=== PATIENT | male | born 1945 | race Caucasian/White ===

== ENCOUNTER → 2016-09-02 | Day surgery (SDC) | payer OTHER, MEDICARE ==
[2016-08-14 15:05] VITALS: Ht 172.7 cm; Wt 90.0 kg
[~2016-09-02] VITALS: Ht 172.7 cm; Wt 90.0 kg
[~2016-09-02] MED LIST: ASPI1TAB83 PO; CHOL100040 PO; DOXA4TAB2 PO; DUTA0.5C PO; GLUC1TAB33 PO; HYZ/10015 PO; KRIL1000 PO; METF-382 PO; MULT-506 PO; PROPOFOL IV EMULSION 10 MG/ML 20 ML VIAL IV ONE; ROSU5TAB PO; SODIUM CHLORIDE 0.9% 500ML 500 ML IV ONE
--- NOTE | 2016-09-02 08:36 | Endo History and Physical ---
History & Physical Date of Service: Sep 02, 2016. Chief Complaint: history of polyps Referring Physician: Dr. Dorian Melvin History of Present Illness 71 yo CF who presents for colonoscopy secondary to history of colon polyps. Past Surgical History Hx Cardiac Surgery: No Hx Internal Defibrillator: No Hx Pacemaker: No Hx Abdominal Surgery: No Hx of Implantable Prosthesis: No Hx Post-Op Nausea and Vomiting: No Hx Cancer Surgery: Yes (RT EAR MOHS) Hx Thoracic Surgery: No Hx Orthopedic: No Hx Urinary Tract Surgery: Yes (VASECTOMY) Family History None Social History Smoking Status: Never Smoker Hx Substance Use: No Hx Alcohol Use: Yes (OCCASSIONALLY) Allergies Coded Allergies: No Known Allergies (Verified , 09/02/16) Current Medications Reported Home Medications Medications Dose Route/Sig Max Daily Dose Days Date Category Krill Oil 1 Cap Cap 1 Cap PO DAILY 08/14/16 Reported Glucosamine Hcl (Glucosamine Hydrochloride) 1,500 Mg Tab 1 Tab PO DAILY 08/14/16 Reported Avodart (Dutasteride) 0.5 Mg Cap 0.5 Mg PO DAILY 08/14/16 Reported Glucophage Ext Rel (Metformin HCl) 500 Mg Tab 1,000 Mg PO BID 01/26/13 Reported Crestor (Rosuvastatin Calcium) 5 Mg Tab 10 Mg PO DAILY 01/26/13 Reported Cardura (Doxazosin Mesylate) 4 Mg Tab 4 Mg PO DAILY 01/26/13 Reported Aspirin 81 Mg Tab 81 Mg PO DAILY 01/26/13 Reported Vitamin D-1000 (Cholecalciferol) 1,000 Unit Tab 1,000 Int-Unit PO DAILY 01/26/13 Reported Multivitamin (Multivitamins) Tab 1 Tab PO DAILY 01/26/13 Reported Hyzaar 25MG/100MG (HCTZ/Losartan Potassium) Tab 1 Tab PO DAILY 01/26/13 Reported Vital Signs Weight (Kilograms): 90 Height (Feet): 5 Height (Inches): 8 Date Time Temp Pulse Resp B/P Pulse Ox O2 Delivery O2 Flow Rate FiO2 09/02/16 08:05 36.8 77 20 161/83 97 Room Air Physical Exam General Appearance: WD/WN, no apparent distress Respiratory/Chest: Auscultation: breath sounds normal Cardiovascular: Heart Auscultation: RRR Abdomen: Bowel Sounds: normal Inspection & Palpation: soft, non-distended, no tenderness, guarding & rebound Assessment and Plan Assessment: 71 yo CF who presents for colonoscopy secondary to history of colon polyps. Plan: Proceed with colonoscopy.
--- NOTE | 2016-09-02 08:56 | Discharge Instructions ---
Endoscopy Patient Instructions Date / Procedure(s) Performed Sep 02, 2016. Colonoscopy Allergy Information Coded Allergies: No Known Allergies (Verified , 09/02/16) Discharge Date / Findings Sep 02, 2016. Diverticulosis Internal hemorrhoids Medication Instructions Stopped Medication(s): last dose Metformin Wednesday,Baby ASA yesterday Provider Instructions Activity Restrictions - No exercising or heavy lifting for 24 hours. - Do not drink alcohol the day of the procedure. - Do not drive a car or operate machinery until the day after the procedure. - Do not make any important decisions or sign important papers in 24 hours after the procedure. Following Day: - Return to full activity which may include returning to work/school. Diet Start your diet with liquids and light foods (jello, soup, juice, toast). Then eat your usual diet if not nauseated. Treatment For Common After Affects For mild abdominal pain, bloating, or excessive gas: - Rest - Eat lightly - Lie on right side Follow-Up Information Follow-up with Dr. Dorian Melvin as scheduled Anesthesia Information What You Should Know You have had a procedure that required some medicine to reduce anxiety and discomfort. This treatment is called moderate sedation. After receiving the treatment, you may be sleepy, but you will be able to breathe on your own. The effects of the treatment may last for several hours. Follow these instructions along with Activity/Diet recommendations noted above: * Do NOT do anything where dizziness or clumsiness would be dangerous. * Rest quietly at home today, then you can be up and about tomorrow. * Have a responsible person stay with you the rest of today. * You may have had an I.V. today. If so, you may take the dressing off later today. Recommendations Call your doctor if: * Trouble breathing * Continuous vomiting for more than 24 hours * Temperature above 101 degrees * Severe abdominal pain or bloating * Pain not relieved by pain medicine ordered * There is increased drainage or redness from any incision * A large amount of rectal bleeding greater than 2-3 tablespoons. (If you had a polyp/s removed or have hemorrhoids, a small amount of blood - from the rectum is to be expected.) * You have any unanswered questions or concerns. IN THE EVENT OF A SERIOUS EMERGENCY, GO TO THE NEAREST EMERGENCY ROOM Your discharge instructions were prepared by provider Roc Kelly. Patient Instructions Signature Page Chavo Waters Patient (or Guardian) Signature/Date: I have read and understand the instructions given to me by my caregivers. Caregiver/RN/Doctor Signature/Date: The above-named patient and/or guardian has received patient instructions on this date. + Original Patient Signature Page (only) stays with chart. Please make copy for patient.
--- NOTE | 2016-09-02 09:01 | GI REPORT ---
Procedure Date: 09/02/2016 8:36 AM Procedure: Colonoscopy Indications: High risk colon cancer surveillance: Personal history of colonic polyps Medicines: Monitored Anesthesia Care Complications: No immediate complications. Estimated Blood Loss: Estimated blood loss: none. Procedure: Pre-Anesthesia Assessment: - Prior to the procedure, a History and Physical was performed, and patient medications and allergies were reviewed. The patient's tolerance of previous anesthesia was also reviewed. The risks and benefits of the procedure and the sedation options and risks were discussed with the patient. All questions were answered, and informed consent was obtained. Prior Anticoagulants: The patient has taken aspirin, last dose was 1 day prior to procedure. ASA Grade Assessment: III - A patient with severe systemic disease. After reviewing the risks and benefits, the patient was deemed in satisfactory condition to undergo the procedure. After I obtained informed consent, the scope was passed under direct vision. Throughout the procedure, the patient's blood pressure, pulse, and oxygen saturations were monitored continuously. The scope was introduced through the anus and advanced to the terminal ileum. The colonoscopy was performed without difficulty. The patient tolerated the procedure well. The quality of the bowel preparation was good. The terminal ileum, ileocecal valve, appendiceal orifice, and rectum were photographed. Findings: Multiple small-mouthed diverticula were found in the sigmoid colon. Non-bleeding internal hemorrhoids were found during retroflexion. The hemorrhoids were small. Impression: - Diverticulosis in the sigmoid colon. - Non-bleeding internal hemorrhoids. - No specimens collected. Recommendation: - Resume previous diet. - Continue present medications. - Repeat colonoscopy in 5 years for surveillance. - Return to primary care physician as previously scheduled. Roc Kelly DO 09/02/2016 9:00:00 AM This report has been signed electronically. Note Initiated On: 09/02/2016 8:36 AM
[2016-09-02 09:35] VITALS: BP 143/69; PULSE 64; O2SAT 97
--- NOTE | 2016-09-02 10:59 | Anesthesiology Progress Note ---
Anesthesia Post Op Note Date & Time Sep 02, 2016 at 10:58 Vital Signs Pain Intensity: 0 Vital Signs Past 12 Hours Date Time Temp Pulse Resp B/P Pulse Ox O2 Delivery O2 Flow Rate FiO2 09/02/16 09:35 64 20 143/69 97 Room Air 09/02/16 09:14 62 20 148/73 96 Room Air 09/02/16 08:59 73 16 106/57 97 Room Air 09/02/16 08:05 36.8 77 20 161/83 97 Room Air Notes Mental Status: alert / awake / arousable Nausea / Vomiting: adequately controlled Pain: adequately controlled Airway Patency, RR, SpO2: stable & adequate BP & HR: stable & adequate Hydration State: stable & adequate Anesthetic Complications: no major complications apparent
== END | disposition home or self-care (01) ==
LOC: C.GI 07:43
PROVIDERS: ATTEND Internal Medicine
DX: Z12.11 Encounter for screening for malignant neoplasm of colon (principal); Z86.010 Personal history of colon polyps; K57.30 Diverticulosis of large intestine without perforation or abscess without bleeding; K64.8 Other hemorrhoids; Z98.890 Other specified postprocedural states

== ENCOUNTER → 2017-01-04 | Outpatient (CLI) | payer OTHER, MEDICARE ==
[~2017-01-04] MED LIST changes: -PROPOFOL IV EMULSION 10 MG/ML 20 ML VIAL IV ONE; -SODIUM CHLORIDE 0.9% 500ML 500 ML IV ONE
[2017-01-04 12:35] LABS: ESTIMATED AVERAGE GLUCOSE 128 mg/dl; HA1C FLAG Normal (Normal)
[2017-01-04 12:52] LABS: URINE APPEARANCE CLEAR (CLEAR); URINE BILIRUBIN NEG (NEG); URINE COLOR YELLOW; URINE NITRITE NEG (NEG); URINE PH 5.5 (4.5-7.5); URINE SPECIFIC GRAVITY 1.023 (1.000-1.030); UROBILINOGEN NEG (NEG); ZZUR CULT IF INDIC CLEAN CATCH NO
[2017-01-04 12:54] LABS: MANUAL MICROSCOPIC REQUIRED? NO; REVIEW REQ? NO
[2017-01-04 13:48] LABS: RATIO 5.6 mcg/mg (0-30.0)
[2017-01-04 14:31] LABS: ALB/GLOB RATIO 1.1 (0.9-2); ALKALINE PHOSPHATASE 59 U/L (45-117); ALT/SGPT 36 U/L (12-78); AST/SGOT 18 U/L (15-37); BLOOD UREA NITROGEN 23 mg/dl (7-18); BUN/CREATININE RATIO 23.7 (10-20); CALCIUM 9.1 mg/dl (8.5-10.1); CARBON DIOXIDE 28 mmol/L (21-32); CHLORIDE 105 mmol/L (98-107); CHOLESTEROL 153 mg/dl (0-200); CHOLESTEROL/HDL RATIO 3.8; CREATININE 0.97 mg/dl (0.60-1.40); GLUCOSE 107 mg/dl (70-99); HDL CHOLESTEROL 40 mg/dl; LDL CHOLESTEROL CALCULATED 47 mg/dl; POTASSIUM 3.9 mmol/L (3.5-5.1); SODIUM 140 mmol/L (136-145); THYROID STIMULATING HORMONE 0.869 uIu/ml (0.300-4.500); TRIGLYCERIDES 331 mg/dl (0-150); VERY LOW DENSITY LIPOPROT CALC 66 mg/dl
== END | disposition home or self-care (01) ==
LOC: C.LABBFT 07:34
PROVIDERS: ATTEND Internal Medicine
DX: E11.9 Type 2 diabetes mellitus without complications (principal); Z11.59 Encounter for screening for other viral diseases; E78.5 Hyperlipidemia, unspecified

== ENCOUNTER → 2017-04-05 | Outpatient (CLI) | payer OTHER, MEDICARE ==
[2017-04-05 12:22] LABS: ALT/SGPT 38 U/L (12-78); AST/SGOT 24 U/L (15-37); BLOOD UREA NITROGEN 22 mg/dl (7-18); BUN/CREATININE RATIO 21.5 (10-20); CALCIUM 9.3 mg/dl (8.5-10.1); CARBON DIOXIDE 29 mmol/L (21-32); CHLORIDE 103 mmol/L (98-107); GLUCOSE 117 mg/dl (70-99); SODIUM 139 mmol/L (136-145)
[2017-04-05 12:23] LABS: ESTIMATED AVERAGE GLUCOSE 126 mg/dl; HA1C FLAG Normal (Normal)
[2017-04-05 12:25] LABS: ALKALINE PHOSPHATASE 59 U/L (45-117)
== END | disposition home or self-care (01) ==
LOC: C.LABBFT 07:39
PROVIDERS: ATTEND Internal Medicine
DX: E11.9 Type 2 diabetes mellitus without complications (principal)

== ENCOUNTER → 2017-06-07 | Outpatient (CLI) | payer OTHER, MEDICARE ==
--- NOTE | 2017-06-08 09:53 | MYOCARDIAL PERFUSION SCAN ---
NAME OF STUDY: One-day nuclear medicine technetium-99m Cardiolite myocardial perfusion scan. CLINICAL HISTORY: This stress test is being performed because of dizziness and chest discomfort. COMPARISON: None. TECHNIQUE: For the stress portion of the study, 33.0 mCi of Technetium 99 m Cardiolite IV was injected at 1:35 p.m. on 06/07/2017. 15 minutes following the injection, imaging of the heart was performed in multiple projection. For the rest portion of the study, 11.0 mCi of Technetium 99 m Cardiolite was injected IV at 11:30 a.m. One hour following the injection, imaging of the heart was performed in the same projections. EXERCISE TREADMILL TESTING: The patient exercised for 6 minutes on a standard Jeff protocol attaining 7 METS and a peak heart rate of 151 beats per minute (100% predicted maximum). The test was terminated due to fatigue. The patient did not experience chest discomfort. Initial blood pressure was 140/80 and this increased to 180/80 at peak exertion. Baseline EKG notes atrial sensing and ventricular pacing. Exercise ECG nondiagnostic due to the conduction abnormality. FINDINGS: The short axis, vertical long axis, and horizontal long axis images were reviewed in detail. There is a small defect noted in the inferior wall which is present at stress and rest. The gated and rotating images suggest that this represents diaphragmatic attenuation rather than a prior infarction. There is no evidence of stress induced myocardial ischemia. The left ventricle demonstrates normal systolic function with an ejection fraction of 69%. There are no wall motion abnormalities. CONCLUSIONS: 1. No scintigraphic evidence of a prior myocardial infarction or stress induced myocardial ischemia. 2. No exercise induced chest pain. 3. Nondiagnostic EKG. 4. Normal left ventricular systolic function with an ejection fraction of 69%. No wall motion abnormalities.
== END | disposition home or self-care (01) ==
LOC: C.NUCL 11:06
PROVIDERS: ATTEND Internal Medicine Cardiovascular Disease
DX: R42 Dizziness and giddiness (principal)

== ENCOUNTER → 2017-09-20 | Outpatient (CLI) | payer OTHER, MEDICARE | END | disposition home or self-care (01) | LOC: C.LABBFT 12:08 | PROVIDERS: ATTEND Urology | DX: N40.0 Benign prostatic hyperplasia without lower urinary tract symptoms (principal) ==

== ENCOUNTER → 2017-10-21 | Outpatient (CLI) | payer OTHER, MEDICARE ==
[2017-10-21 12:42] LABS: BASO % 0.6 %; BASO ABS # 0.04 K/uL (0-0.2); EOS % 1.2 %; EOS ABS # 0.08 K/uL (0-0.5); HEMATOCRIT 40.4 % (42-52); HEMOGLOBIN 13.7 g/dL (14.0-18.0); IG# 0.01 K/uL (0.00-0.02); LYMPH % 33.9 %; LYMPH ABS # 2.23 K/uL (1.2-3.4); MEAN CELL VOLUME 85.8 fL (80-100); MEAN CORPUSCULAR HEMOGLOBIN 29.1 pg (25-34); MEAN CORPUSCULAR HGB CONC 33.9 g/dl (32-36); MEAN PLATELET VOLUME 10.2 fL (7.4-10.4); MONO % 13.5 %; MONO ABS # 0.89 K/uL (0.11-0.59); NEUT % 50.6 %; NEUT ABS # 3.33 K/uL (1.4-6.5); PLATELET COUNT 198 K/uL (130-400); RED CELL DISTRIBUTION WIDTH CV 13.8 % (11.5-14.5); RED CELL DISTRIBUTION WIDTH SD 43.1 fL (36.4-46.3); WHITE BLOOD COUNT 6.58 K/uL (4.8-10.8)
[2017-10-21 13:19] LABS: HEMOGLOBIN A1C 6.1 % (4.5-5.6)
== END | disposition home or self-care (01) ==
LOC: C.LABBFT 07:30
PROVIDERS: ATTEND Internal Medicine
DX: D64.9 Anemia, unspecified (principal); E11.9 Type 2 diabetes mellitus without complications; E78.5 Hyperlipidemia, unspecified

== ENCOUNTER → 2017-11-02 | Outpatient (CLI) | payer OTHER, MEDICARE ==
--- NOTE | 2017-11-02 15:22 | DIAGNOSTIC IMAGING REPORT ---
CAROTID DOPPLER NECK ART HISTORY: Carotid stenosis. I65.29 Carotid artery stenosis, [id number] Nontoxic multi COMPARISON: 06/26/2014 TECHNIQUE: Real-time, grayscale, and color Doppler sonography of the carotid arteries was performed. Imaging reviewed in the transverse and longitudinal planes. All measurements were calculated based on NASCET criteria. FINDINGS: Antegrade flow is seen in the bilateral vertebral arteries. The brachial pressures are hemodynamically similar. Mild plaque formation bilaterally The peak systolic velocity within the right ICA is 82. The right systolic ratio is 0.9. The peak systolic velocity within the left ICA is 173. The left systolic ratio is 1.4. IMPRESSION: 1. 50-60% narrowing left internal carotid artery. 2. This is stable to slightly progressive compared to the prior exam. 3. No additional significant stenotic process. The above report was generated using voice recognition software. It may contain grammatical, syntax or spelling errors. Electronically signed by: Yosef Stapleton M.D. 11/02/2017 3:21 PM Dictated Date/Time: 11/02/2017 3:19 PM
--- NOTE | 2017-11-02 15:27 | DIAGNOSTIC IMAGING REPORT ---
SOFT TISS HEAD/NECK-THYROID HISTORY: Thyroid nodules E04.2 Nontoxic multinodular goiter COMPARISON: 12/27/2014 FINDINGS: Right lobe: Maximum dimension 5.0 cm. Improved nodularity compared to the prior study with a maximum dimension of 1.7 x 1.5 cm. Left lobe: Maximum dimension 6.0 cm. Diffuse heterogeneous somewhat nodular appearing internal architecture similar compared to the prior study. Discrete nodules are difficult to define with certainty. Isthmus: Diffuse heterogeneity unchanged IMPRESSION: Diffuse heterogeneity of both thyroid lobes with stable to slightly diminished underlying nodularity. The above report was generated using voice recognition software. It may contain grammatical, syntax or spelling errors. Electronically signed by: Yosef Stapleton M.D. 11/02/2017 3:25 PM Dictated Date/Time: 11/02/2017 3:22 PM
== END | disposition home or self-care (01) ==
LOC: C.ULTR 13:33
PROVIDERS: ATTEND Physician Assistant Medical
DX: E04.2 Nontoxic multinodular goiter (principal); I65.29 Occlusion and stenosis of unspecified carotid artery

== ENCOUNTER → 2017-11-24 | Outpatient (CLI) | payer OTHER, MEDICARE | END | disposition home or self-care (01) | LOC: C.PATHSPEC 18:05 | PROVIDERS: ATTEND Dermatology | DX: C43.59 Malignant melanoma of other part of trunk (principal) ==

== ENCOUNTER → 2017-12-08 | Outpatient (CLI) | payer OTHER, MEDICARE ==
--- NOTE | 2017-12-08 15:44 | DIAGNOSTIC IMAGING REPORT ---
CHEST 2 VIEWS ROUTINE HISTORY: Melanoma. COMPARISON: Chest 05/28/2016. FINDINGS: Best seen on the lateral view there is a possible 1.3 cm nodule overlying the thoracic spine. No focal lung consolidations. No evidence for pulmonary edema. The heart is normal in size. No pleural effusions. No pneumothorax. Left-sided dual-chamber pacemaker. IMPRESSION: Follow-up chest CT is recommended for further evaluation of the possible 1.3 cm nodule overlying the thoracic spine. These findings were called/faxed to the referring physician's office following dictation. Electronically signed by: James Garcia M.D. 12/08/2017 3:43 PM Dictated Date/Time: 12/08/2017 3:40 PM
== END | disposition home or self-care (01) ==
LOC: C.RAD 14:59
PROVIDERS: ATTEND Physician Assistant
DX: Z08 Encounter for follow-up examination after completed treatment for malignant neoplasm (principal); Z85.820 Personal history of malignant melanoma of skin; R93.8 Abnormal findings on diagnostic imaging of other specified body structures

== ENCOUNTER → 2017-12-08 | Outpatient (CLI) | payer OTHER, MEDICARE | END | disposition home or self-care (01) | LOC: C.PATHSPEC 17:08 | PROVIDERS: ATTEND Plastic Surgery | DX: C43.59 Malignant melanoma of other part of trunk (principal) ==

== ENCOUNTER → 2017-12-09 | Outpatient (CLI) | payer OTHER, MEDICARE ==
[2017-12-09 12:38] LABS: BASO % 0.3 %; BASO ABS # 0.03 K/uL (0-0.2); EOS % 0.4 %; EOS ABS # 0.04 K/uL (0-0.5); HEMATOCRIT 40.3 % (42-52); HEMOGLOBIN 13.4 g/dL (14.0-18.0); IG# 0.03 K/uL (0.00-0.02); LYMPH % 15.8 %; LYMPH ABS # 1.66 K/uL (1.2-3.4); MEAN CELL VOLUME 86.3 fL (80-100); MEAN CORPUSCULAR HEMOGLOBIN 28.7 pg (25-34); MEAN CORPUSCULAR HGB CONC 33.3 g/dl (32-36); MEAN PLATELET VOLUME 10.2 fL (7.4-10.4); MONO % 5.7 %; NEUT % 77.5 %; NEUT ABS # 8.15 K/uL (1.4-6.5); PLATELET COUNT 187 K/uL (130-400); RED CELL DISTRIBUTION WIDTH SD 43.8 fL (36.4-46.3); WHITE BLOOD COUNT 10.51 K/uL (4.8-10.8)
[2017-12-09 12:55] LABS: ALBUMIN 3.6 gm/dl (3.4-5.0); TOTAL PROTEIN 7.1 gm/dl (6.4-8.2)
== END | disposition home or self-care (01) ==
LOC: C.LABBFT 10:10
PROVIDERS: ATTEND Physician Assistant
DX: Z85.820 Personal history of malignant melanoma of skin (principal)

== ENCOUNTER → 2017-12-28 | Outpatient (CLI) | payer OTHER, MEDICARE ==
--- NOTE | 2017-12-28 15:13 | DIAGNOSTIC IMAGING REPORT ---
CT SCAN OF THE CHEST WITHOUT IV CONTRAST CLINICAL HISTORY: Melanoma. COMPARISON STUDY: Chest x-ray dated 12/08/2017. TECHNIQUE: CT scan of the thorax was performed from the thoracic inlet to the upper abdomen. Images are reviewed in the axial, sagittal, and coronal planes. IV contrast was not administered for this examination as per the referring clinician. A dose lowering technique was utilized adhering to the principles of ALARA. CT DOSE: 632.64 mGy.cm FINDINGS: Thyroid: Enlarged and heterogeneous. Low-attenuation nodules are suggested. A coarse calcification is seen in the left thyroid lobe. Thoracic aorta: The thoracic aorta is normal in caliber and demonstrates standard 3-vessel arch anatomy. Heart: A 2-lead cardiac pacemaker is present in the left chest wall. The heart is top normal size and there is trace fluid. There are scattered coronary artery calcifications.. Lungs and pleural spaces: There is trace pleural fluid left lung base. There is patchy consolidation identified in the right lower lobe. There is a 1.4 x 1.1 cm nodule in the left lower lobe seen on image 150. This likely corresponds to a mildly seen by x-ray. An additional 5 mm nodule seen in the right lower lobe in image #224, and a 3 mm right upper lobe nodule is seen on image #116. The trachea and central airways are clear. There are scattered calcified granulomas. Mediastinum: There is no mediastinal lymphadenopathy. Nadja: Not well assessed without IV contrast. Axillae: There is no axillary lymphadenopathy. Upper abdomen: The liver is enlarged and steatotic. A tiny hiatal hernia is identified. Diverticulosis is noted in the partially imaged left colon. Skeletal structures: The skeletal structures are osteopenic. A large hemangioma is noted in the body of T9. No lytic or blastic bony lesions are seen. IMPRESSION: 1. There is patchy consolidation in the right lower lobe, typical in appearance for pneumonia/aspiration pneumonitis. Clinical correlation will be required. Follow-up to resolution is recommended. 2. There is a trace left pleural effusion. 3. There is a pathologically indeterminant 1.4 x 1.1 cm nodule in the left lower lobe. This likely corresponds to the abnormality seen by chest x-ray on 12/08/2017. This could represent metastatic disease given the history of melanoma. A primary pulmonary neoplasm or pulmonary carcinoid could also have this appearance. Tissue sampling will be required for definitive characterization. Follow-up with a thoracic surgeon is recommended for further assessment. 4. Additional subcentimeter pulmonary nodules as above. These can be followed as per the Fleischner criteria. 5. There is no mediastinal adenopathy. 6. Hepatic steatosis. 7. Additional findings as above. Please refer to below summary of Fleischner criteria recommendations for follow-up of incidental CT nodules (Thuy Howe, Guidelines for management of small pulmonary nodules detected on CT scans: A statement from the Fleischner Society, Radiology 237: [phone].) SOLID NODULES Solitary nodule size: <6 mm * low risk patients: no follow-up needed * high risk patients: optional CT at 12 months Solitary nodule size: 6-8 mm * low risk patients: follow-up at 6-12 months, then consider further follow-up at 18-24 months * high risk patients: initial follow-up CT at 6-12 months and then at 18-24 months if no change Solitary nodule size: >8 mm * either low or high risk patients - consider follow-up CT at 3 months, and/or CT-PET, and/or biopsy Multiple nodules size: <6 mm * low risk patients: no routine follow-up * high risk patients: optional CT at 12 months Multiple nodules size: 6-8 mm * low risk patients: follow-up at 3-6 months, then consider further follow-up at 18-24 months * high risk patients: follow-up at 3-6 months, then at 18-24 months if no change Multiple nodules size: >8 mm * low risk patients: follow-up at 3-6 months, then consider further follow-up at 18-24 months * high risk patients: follow-up at 3-6 months, then at 18-24 months if no change Note: newly detected indeterminate nodule in persons 35 years of age or older. * low risk patients: minimal or absent history of smoking and/or other known risk factors * high risk patients: history of smoking or of other known risk factors (e.g. first degree relative with lung cancer, or exposure to asbestos, radon, uranium) * if a nodule up to 8 mm is partly solid or is ground glass further follow-up is required after 24 months to exclude possible slow growing adenocarcinoma (EVONNE) SUBSOLID NODULES Solitary pure ground-glass nodule * nodule size <6 mm - no CT follow-up required * nodule size >=6 mm - follow-up CT at 6-12 months, then every 2 years until 5 years Solitary part-solid nodule * nodule size <6 mm - no CT follow-up required * nodule size >=6 mm - follow-up CT at 3-6 months. If unchanged, and solid component remains <6 mm, then annual follow-up for 5 years Multiple subsolid nodules * nodule size <6 mm - follow-up CT at 3-6 months, consider further follow-up at 2 and 4 years if stable * nodule size >=6 mm - follow-up CT at 3-6 months, subsequent management based on the most suspicious nodule(s) Electronically signed by: Torey Jones M.D. 12/28/2017 3:12 PM Dictated Date/Time: 12/28/2017 3:03 PM
== END | disposition home or self-care (01) ==
LOC: C.CTS 14:39
PROVIDERS: ATTEND Dermatology
DX: C43.59 Malignant melanoma of other part of trunk (principal); R93.8 Abnormal findings on diagnostic imaging of other specified body structures; R91.1 Solitary pulmonary nodule; R91.8 Other nonspecific abnormal finding of lung field; K76.0 Fatty (change of) liver, not elsewhere classified

== ENCOUNTER → 2018-01-12 | Outpatient (CLI) | payer OTHER, MEDICARE ==
--- NOTE | 2018-01-12 13:18 | DIAGNOSTIC IMAGING REPORT ---
WHOLE-BODY PET/CT SCAN CLINICAL HISTORY: PULMONARY NODULE melanoma COMPARISON STUDY: Chest CT dated 12/28/2017 FINDINGS: The patient was injected with 11.5 mCi of F 18 labeled FDG. Following the standard induction phase, PET/CT scanning is performed from the skull base the upper thigh region. Activity within the head and neck is felt to be physiologic. The CT portion study reveals a multinodular thyroid goiter which is not significantly FDG avid Within the chest, there is no FDG avid adenopathy. There is a lobulated 13 mm left lower lobe pulmonary nodule which is not significantly FDG avid. Within the abdomen and pelvis, there is physiologic urinary tract and bowel activity. There is no pathologic adrenal activity. There is no pathologic hepatic activity. There is no pathologic garrison activity. There is extensive pandiverticulosis. Additional acquisitions of both lower extremities were obtained. There are a few nonspecific foci of mildly increased activity within the right soleus muscle, of uncertain significance. These at an SUV maximum of 3.7 there are no corresponding CT abnormalities. IMPRESSION: 1. The 13 mm left lower lobe pulmonary nodule is not FDG avid 2. No evidence of pathologic garrison activity 3. There are few nonspecific foci of mildly increased activity within the right soleus muscle of the calf. These foci are uncertain etiology and significance. These have an SUV maximum of 3.7. There is no corresponding CT abnormality. Electronically signed by: Parish Andre M.D. 01/12/2018 1:17 PM Dictated Date/Time: 01/12/2018 1:04 PM
== END | disposition home or self-care (01) ==
LOC: C.PET 08:56
PROVIDERS: ATTEND Surgery
DX: C43.59 Malignant melanoma of other part of trunk (principal); R91.1 Solitary pulmonary nodule

== ENCOUNTER → 2018-01-14 | Outpatient (CLI) | payer OTHER, MEDICARE ==
[~2018-01-14] MED LIST changes: +COEN75CA PO; +PRAV20TA PO; +TAMS0.4C38 PO
[2018-01-14 10:13] LABS: BLOOD UREA NITROGEN 23 mg/dl (7-18); CALCIUM 9.5 mg/dl (8.5-10.1); CARBON DIOXIDE 29 mmol/L (21-32); CREATININE 1.12 mg/dl (0.60-1.40); GLUCOSE 108 mg/dl (70-99); POTASSIUM 3.8 mmol/L (3.5-5.1); SODIUM 139 mmol/L (136-145)
== END | disposition home or self-care (01) ==
LOC: C.CPL 08:21
PROVIDERS: ATTEND Surgery
DX: Z01.812 Encounter for preprocedural laboratory examination (principal); Z01.810 Encounter for preprocedural cardiovascular examination; R91.1 Solitary pulmonary nodule

== ENCOUNTER 2018-01-18 07:55 | Inpatient (IN) | payer OTHER, MEDICARE ==
[2018-01-17 08:43] VITALS: BMI 31.0
[~2018-01-18] VITALS: Ht 172.7 cm; Wt 94.0 kg
[~2018-01-18 07:55] MED LIST changes: +LACTATED RINGER'S 1000ML 1,000 ML IV SCH; -ROSU5TAB PO
[2018-01-18 08:24] VITALS: BP 171/74; PULSE 81; TEMP 36.5; O2SAT 99; BMI 31.0
[2018-01-18 09:09] LABS: PTT PATIENT 27.8 SECONDS (21.0-31.0)
[2018-01-18] MEDS ORDERED: FENTANYL CITRATE INJ 50 MCG/1 ML 2 ML VIAL ONE ×4 (09:11→15:10)
[2018-01-18] MEDS ORDERED: MIDAZOLAM HCL 1 MG/ML 2ML VIAL ONE (09:11)
--- NOTE | 2018-01-18 09:31 | History & Physical Bridge Note ---
H&P Re-Evaluation Bridge Note: I have examined the patient, reviewed the History & Physical and in the interval since the performance of the History & Physical I have noted the following changes of clinical significance: No changes noted
[2018-01-18] MEDS ORDERED: CLINDAMYCIN PHOS 150 MG/ML 2 ML VIAL ONE (10:17)
[2018-01-18] MEDS ORDERED: SODIUM CHLORIDE 0.9% PF 50 ML VIAL ONE ×2 (10:18→10:29)
[2018-01-18] MEDS ORDERED: BUPIVACAINE LIPOSOME 1/3% 266 MG/20 ML VIAL ONE (10:18)
[2018-01-18] MEDS ORDERED: SODIUM CHLORIDE 0.9% INJ 10 ML VIAL ONE (10:18)
[2018-01-18] MEDS ORDERED: BUPIVACAINE 0.5 % 5 MG/1 ML PF 10ML VIAL ONE (10:19)
[2018-01-18] MEDS ORDERED: DEXAMETHASONE SOD INJ 4 MG/ML VIAL ONE (12:37)
[2018-01-18] MEDS ORDERED: GLYCOPYRROLATE INJ 0.2 MG/ML VIAL ONE (12:37)
[2018-01-18] MEDS ORDERED: LIDOCAINE HCL 2% 2 ML VIAL (20MG/ML) ONE (12:37)
[2018-01-18] MEDS ORDERED: CEFAZOLIN SOD 1 GM VIAL ONE (12:37)
[2018-01-18] MEDS ORDERED: ONDANSETRON INJ 2 MG/ML 2 ML VIAL ONE (12:37)
[2018-01-18] MEDS ORDERED: NEOSTIGMINE METHYLSULFATE 5 MG/5 ML SYR ONE (12:37)
[2018-01-18] MEDS ORDERED: PROPOFOL IV EMULSION 10 MG/ML 20 ML VIAL ONE ×2 (12:37→14:01)
[2018-01-18] MEDS ORDERED: ROCURONIUM BROMIDE 10 MG/ML 5 ML VIAL ONE (12:37)
[2018-01-18] MEDS ORDERED: HYDROmorphone INJ 0.5 MG/0.5 ML SYR IV PRN (14:00)
[2018-01-18] MEDS ORDERED: EpHEDrine SULFATE INJ 50 MG/ML AMP IV PRN (14:00)
[2018-01-18] MEDS ORDERED: ONDANSETRON INJ 2 MG/ML 2 ML VIAL IV PRN ×2 (14:00→15:15)
[2018-01-18] MEDS ORDERED: ATROPINE SULFATE 0.1 MG/ML 5ML SYR IV PRN (14:00)
[2018-01-18] MEDS ORDERED: LABETALOL HCL IV 5 MG/ML 20ML IV PRN (14:00)
[2018-01-18] MEDS ORDERED: FENTANYL CITRATE INJ 50 MCG/1 ML 2 ML VIAL IV PRN (14:00)
[2018-01-18] MEDS ORDERED: PHENYLEPHRINE 100MCG/ML 5ML SYR ONE (14:03)
[2018-01-18] MEDS ORDERED: TISSEEL FIBRIN SEALANT 10ML TOP ONE (14:30)
--- NOTE | 2018-01-18 14:50 | [facility] Post Operative Brief Note ---
Immediate Operative Summary Operative Date January 18, 2018. Pre-Operative Diagnosis Mass Left Lower Lobe Post-Operative Diagnosis Same as preop Procedure(s) Performed Left Video Assisted Thoracoscopy with Left Lower Lobectomy with Mediastinal Lymphadenectomy Robot Teresat Surgeon Dr. Liu Education And Training Coordinator Surgeon(s) Sudarshan Varghese PA-C Estimated Blood Loss 200 ml Findings Consistent with Post-Op Diagnosis Specimens Permanent A. L 8 Lymph node x 2 B. L 12 Lymph node x 4 C. L 11 Lymph node X 2 D. L 10 Lymph node X 4 E. Level 5 F. Level 6 G. L 2 Lymph node H. L 9 Lymph node Frozen 1. Left lower lobe for bronchial margins and diagnosis left room at 1444 Anesthesia Type General
[2018-01-18] MEDS ORDERED: METOCLOPRAMIDE HCL INJ 5 MG/ML 2 ML VIAL IV. STA (15:01)
[2018-01-18] MEDS ORDERED: GLUCOSE 40% GEL 15 GM TUBE PO PRN (15:15)
[2018-01-18] MEDS ORDERED: GLUCAGON FOR INJ 1 MG VIAL IM PRN (15:15)
[2018-01-18] MEDS ORDERED: SODIUM CHLORIDE 0.9% 1000ML 1,000 ML IV SCH (15:15)
[2018-01-18] MEDS ORDERED: GLUCOSE 10 TABS/TUBE PO PRN (15:15)
[2018-01-18] MEDS ORDERED: CARBOHYDRATES FOR HYPOGLYCEMIA PO PRN (15:15)
[2018-01-18] MEDS ORDERED: DEXTROSE 50% 50 ML SYR IV PRN (15:15)
[2018-01-18] MEDS ORDERED: MoRPHine SULFATE 4 MG/ML 1 ML CARP\\VIAL IV PRN (15:15)
[2018-01-18] MEDS ORDERED: OXYCODONE HCL IR 5 MG TAB (IMMEDIATE RELEASE) PO PRN (15:15)
[2018-01-18] MEDS: MEPERIDINE HCL 25 MG/ML CARP IV PRN ×2 (15:35→16:13)
--- NOTE | 2018-01-18 15:51 | DIAGNOSTIC IMAGING REPORT ---
CHEST ONE VIEW PORTABLE CLINICAL HISTORY: Lung resection. COMPARISON STUDY: Chest CT December 28, 2017. FINDINGS: A left sided chest tube is in place. There is a dual lead left subclavian pacemaker. Soft tissue gas within the left chest wall is expected. A small left pneumothorax is noted, predominantly located within the medial left hemithorax. There is no evidence for pulmonary edema. Cardiomegaly is noted. IMPRESSION: Small medial left pneumothorax. Left chest tube in place. Electronically signed by: Baljinder Blue M.D. 01/18/2018 3:49 PM Dictated Date/Time: 01/18/2018 3:47 PM
--- NOTE | 2018-01-18 16:10 | OPERATIVE REPORT ---
DATE OF OPERATION: 01/18/2018 PREOPERATIVE DIAGNOSIS: Pulmonary nodule, left lower lobe. POSTOPERATIVE DIAGNOSIS: Neoplasm, left lower lobe. PROCEDURE: 1. Robot-assisted thoracoscopic left lower lobectomy. 2. Mediastinal lymph node dissection. SURGEON: Sergio Liu MD. FISHING ACCESSORIES MAKER: Sudarshan Varghese. (Mr. Varghese was present for the entire case. He was at the patient's bedside while I was at the consult for the robotic portion. Mr. Varghese was present for the entire case and closed the skin incisions at the conclusion.) ANESTHESIA: General anesthesia with endotracheal intubation. 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 It was very superficial and only 0.3 mm. He also had a cough and underwent a chest x-ray and a CT scan and was found to have a nodule in his left lower lobe. He is very concerning, although he had no other evidence of disease anywhere else. After much discussion, we elected to proceed with a resection. I would have done a wedge resection; however, this was in the middle of his left lower lobe. He had good lung function. After a long discussion with the patient and his , who is a retired brilliandeer lopper, we elected to proceed with a lobectomy. On 01/18/2018, the patient was brought to the operating room and underwent uncomplicated robotic resection. Frozen section showed this to be a neoplasm, although we were unable to delineate any further specifics. The resection margins were negative. PROCEDURE: The patient brought to operating room and laid in supine position. General anesthesia was induced and endotracheal intubation was performed with a double lumen tube. Arterial line was placed. The patient was placed in right lateral decubitus position and left chest was prepped and draped in the usual sterile fashion. A 5 mm port was placed posteriorly in about the eighth interspace. An 8 mm port was placed about 9 cm more medial and then a camera port which was 12 mm was placed about 10 cm anterior to this and finally an 8 mm port was placed anteriorly in the seventh interspace. An assistance port, which was 15 mm, was placed just above the costal margin anteriorly. Upon going in, we could see there really was very little in the way of adhesions except for between the lower lobe and the upper lobe. These appeared to be inflammatory adhesions. We dissected this out and freed up the anterior medial aspect of the lower lobe from the diaphragm. I then was able to push the lung anteriorly and opened up the posterior pleura, took down the inferior pulmonary ligament, biopsied level 8 and level 9 lymph nodes reaching up to the vein and cleaned this off quite nicely anteriorly and posteriorly. I then kept going up posteriorly and got to the artery and dissected this out until we freed up a nice plane here. I went further up and I biopsied level 5 and level 6 lymph nodes. We also were able to biopsy level 10 nodes, although I really could not get to level 7. His anatomy just made it difficult. The lung was then retracted medially and I freed up the medial aspect and then did biopsy of the level 10 node. I then the adhesions between the 2 lobes which were particularly dense anteriorly. I was unable to find the artery medially and did a fine dissection posteriorly until I came to my original dissection area and then fired an Endo-DEREK stapler x1 to complete the posterior fissure. This allowed us to visualize the A6 or superior segmental artery to the lower lobe posteriorly and we fired Endo-DEREK stapler across this. I was unable to free up the remaining left lower lobe artery and fired a stapler just distal to the takeoff of the lingual artery. This freed up things quite nicely. I then went down in front of the bronchus through the fissure and cut down into where I was able to fire an Endo-DEREK stapler to complete the anterior fissure about 3 times. I was then able to free up the vein very nicely and fired an Endo-DEREK stapler across this. I then pulled down the lung and fired a stapler across the lower lobe bronchus distal to the lingual bronchus. We made sure we did not compromise this. I also biopsied what appeared to be a level 2 node as I went dissecting up anteriorly and medially. I could not get to the level 7. It should be noted that prior to starting the dissection, as soon as we entered the chest, I mixed 266 mg of Exparel with 30 mL of 0.5% bupivacaine and 150 mL of normal saline. I injected each of the port sites from the skin all the way down to the pleura. I then used the rest of this to perform an intercostal block from the 2nd-11th rib intrathoracically. Going back into the chest, we then placed the left lower lobe in an Endobag. We had to enlarge the assistance port just a bit to get this out. A 24-Sinhala chest tube was placed through the anterior thoracoscopy port and directed towards the apex. Tisseel was then sprayed on the bronchus and the arteries and veins as well as the staple lines anteriorly and posteriorly. Really the lung expanded nicely and I really did not see an air leak. A 0-Vicryl was used to close the assistance port and a camera port. A 4-0 Monocryl was used in running subcuticular fashion to close all the skin incisions. The chest tube was held in place with heavy silk suture. He awakened without difficulty from anesthesia. I attest to the content of the Intraoperative Record and any orders documented therein. Any exception s are noted below.
[2018-01-18 16:51] VITALS: BP 148/89; PULSE 86; TEMP 36.4; O2SAT 99
--- NOTE | 2018-01-18 16:54 | Anesthesiology Progress Note ---
Anesthesia Post Op Note Date & Time January 18, 2018 at 16:42 Vital Signs Pain Intensity: 0 Vital Signs Past 12 Hours Date Time Temp Pulse Resp B/P (MAP) Pulse Ox O2 Delivery O2 Flow Rate FiO2 01/18/18 16:31 165/85 01/18/18 16:30 80 11 99 01/18/18 16:30 36.4 80 11 01/18/18 16:26 154/83 01/18/18 16:25 80 10 01/18/18 16:25 79 10 97 01/18/18 16:21 166/88 01/18/18 16:20 81 16 01/18/18 16:20 81 16 98 01/18/18 16:16 167/91 01/18/18 16:15 83 12 98 01/18/18 16:15 83 12 01/18/18 16:11 145/95 01/18/18 16:10 84 16 01/18/18 16:10 84 16 98 01/18/18 16:06 141/89 01/18/18 16:05 125 17 01/18/18 16:05 126 17 161/83 98 01/18/18 16:04 167/93 01/18/18 16:01 172/88 01/18/18 16:00 128 15 97 01/18/18 16:00 128 15 01/18/18 15:56 169/84 01/18/18 15:55 86 20 100 01/18/18 15:55 82 20 01/18/18 15:51 156/88 01/18/18 15:50 81 12 01/18/18 15:50 81 12 100 01/18/18 15:50 36.4 79 12 156/88 100 Oxymask 10 01/18/18 15:46 178/85 01/18/18 15:45 80 10 01/18/18 15:45 80 10 100 01/18/18 15:41 160/93 01/18/18 15:40 80 14 01/18/18 15:40 80 14 100 01/18/18 15:38 173/94 01/18/18 15:35 80 16 100 01/18/18 15:35 80 16 01/18/18 15:30 81 19 01/18/18 15:30 80 19 100 01/18/18 15:27 111/56 01/18/18 15:25 80 17 100 01/18/18 15:25 80 17 01/18/18 15:21 154/87 01/18/18 15:20 35.7 80 18 154/87 100 Oxymask 10 01/18/18 15:20 80 14 100 01/18/18 15:20 80 14 01/18/18 08:24 36.5 81 20 171/74 99 Room Air Notes Mental Status: alert / awake / arousable, participated in evaluation Pt Amnestic to Procedure: Yes Nausea / Vomiting: adequately controlled Pain: adequately controlled Airway Patency, RR, SpO2: stable & adequate BP & HR: stable & adequate Hydration State: stable & adequate Anesthetic Complications: no major complications apparent Anesthetic Complications: While in PACU, [employer] returned the patient's pacer settings to preoperative baseline. Within a few minutes of the transition, the patient's rate suddenly increased to 135 and the patient stated "he didn't feel well." P waves were not visible, although might have been buried secondary to the increased rate. A magnet was applied and rate dropped to 85, ventricularly paced. Patient stated he felt better. Of note, the patient was shivering during the period of increased heart rate. After applying the magnet he was given 25 mg of Demerol to treat the shivering. The magnet was removed and the patient showed an atrially paced rate in the 80s. The bank representative from [employer] returned and rechecked the pacer and found no adverse events and confirmed all appropriate settings. After speaking with the [employer] rep, we were uncertain if the tachycardia was secondary to shivering triggering the exercise function on the pace maker or if it was the patient triggering the increased rate. The patient was observed in PACU for another 20 minutes without any subsequent events and then status was upgraded to telemetry to allow closer cardiac monitoring overnight.
[2018-01-18 17:00] VITALS: BP_SYST 148; BP_SYST 156; BP_DIAS 79; BP_DIAS 89; PULSE 83; PULSE 85; TEMP 36.4; TEMP 36.8; O2SAT 99; Ht 172.7 cm; Wt 94.0 kg
[2018-01-18] MEDS: ACETAMINOPHEN IV 1,000 MG in EMPTY BAG 0 ML IV SCH (17:48)
[2018-01-18] MEDS: KETOROLAC TROMETHAMINE 15 MG/ML VIAL IV. SCH (17:51)
[2018-01-18 18:00] VITALS: BP 133/81; PULSE 87; TEMP 36.4; O2SAT 99
[2018-01-18] MEDS ORDERED: NURSING VERBAL MED ORDER ONE (18:00)
[2018-01-18] MEDS ORDERED: METOCLOPRAMIDE HCL INJ 5 MG/ML 2 ML VIAL IV. SCH (18:00)
[2018-01-18] MEDS ORDERED: CHLORASEPTIC 1.4% SOLN 180 ML BTL MT PRN (18:15)
[2018-01-18] MEDS: TAMSULOSIN HCL 0.4 MG CAP PO SCH (20:27)
[2018-01-18] MEDS: DOCUSATE SODIUM 100 MG CAP PO SCH (20:27)
[2018-01-18] MEDS: INSULIN ASPART 100 UNITS/ML 3 ML PEN SC SCH (20:28)
[2018-01-18] MEDS: PRAVASTATIN SOD 20 MG TAB PO SCH (20:28)
[2018-01-18 20:32] VITALS: BP 134/67; PULSE 86; TEMP 36.6; O2SAT 94
[2018-01-18 23:43] VITALS: BP 123/65; PULSE 84; TEMP 36.8; O2SAT 94
[2018-01-18] MEDS: METOCLOPRAMIDE HCL INJ 5 MG/ML 2 ML VIAL IV. SCH (23:47)
[2018-01-19 01:03] VITALS: BP 136/98; PULSE 141; O2SAT 94
[2018-01-19] MEDS: ACETAMINOPHEN IV 1,000 MG in EMPTY BAG 0 ML IV SCH (01:50)
[2018-01-19] MEDS: KETOROLAC TROMETHAMINE 15 MG/ML VIAL IV. SCH ×3 (01:52→18:02)
[2018-01-19 03:47] VITALS: BP 114/60; PULSE 82; TEMP 37; TEMP 37.5; O2SAT 95
[2018-01-19 06:05] LABS: BASO % 0.1 %; BASO ABS # 0.01 K/uL (0-0.2); HEMATOCRIT 34.4 % (42-52); HEMOGLOBIN 11.6 g/dL (14.0-18.0); IG# 0.03 K/uL (0.00-0.02); LYMPH % 13.6 %; LYMPH ABS # 1.47 K/uL (1.2-3.4); MEAN CORPUSCULAR HGB CONC 33.7 g/dl (32-36); MONO % 9.9 %; MONO ABS # 1.07 K/uL (0.11-0.59); NEUT % 76.1 %; PLATELET COUNT 163 K/uL (130-400); RED CELL DISTRIBUTION WIDTH CV 14.2 % (11.5-14.5); RED CELL DISTRIBUTION WIDTH SD 44.6 fL (36.4-46.3); WHITE BLOOD COUNT 10.78 K/uL (4.8-10.8)
[2018-01-19 06:35] LABS: CREATININE 1.14 mg/dl (0.60-1.40); POTASSIUM 4.3 mmol/L (3.5-5.1)
[2018-01-19 06:57] VITALS: BP 125/63; PULSE 74; TEMP 37.2; O2SAT 96
--- NOTE | 2018-01-19 07:49 | DIAGNOSTIC IMAGING REPORT ---
CHEST ONE VIEW PORTABLE HISTORY: Left pneumothorax. Follow-up. COMPARISON: Chest 01/18/2018. FINDINGS: Decrease in size in the small left paraspinal pneumothorax. Left-sided chest tube remains unchanged in position. The right lung is essentially clear. The heart remains mildly enlarged. There is a left-sided dual-chamber pacemaker. IMPRESSION: Decrease in size in the small left medial pneumothorax. The left chest tube is unchanged in position. Electronically signed by: James Garcia M.D. 01/19/2018 7:47 AM Dictated Date/Time: 01/19/2018 7:46 AM
[2018-01-19] MEDS: ACETAMINOPHEN 325 MG TAB PO SCH ×3 (08:00→19:29)
[2018-01-19] MEDS: METOCLOPRAMIDE HCL INJ 5 MG/ML 2 ML VIAL IV. SCH (08:49)
[2018-01-19] MEDS: DOCUSATE SODIUM 100 MG CAP PO SCH ×2 (08:50→20:49)
[2018-01-19] MEDS: ASPIRIN 81 MG ECTAB PO SCH (08:50)
[2018-01-19] MEDS: DOXAZosin MESYLATE TAB 4 MG TAB PO SCH (08:51)
[2018-01-19] MEDS: MULTIVITAMIN TAB PO SCH (08:51)
[2018-01-19] MEDS: LOSARTAN POTASSIUM 50 MG TAB PO SCH (08:51)
[2018-01-19] MEDS: CHOLECALCIFEROL 1000 INTER.UNIT TAB PO SCH (08:51)
[2018-01-19] MEDS: ENOXAPARIN 40 MG/0.4 ML SYR SQ SCH (08:52)
[2018-01-19] MEDS: INSULIN ASPART 100 UNITS/ML 3 ML PEN SC SCH ×4 (08:55→20:52)
[2018-01-19 15:20] VITALS: BP 130/70; PULSE 88; TEMP 36.5; O2SAT 95
--- NOTE | 2018-01-19 19:36 | SURGERY PROGRESS NOTE ---
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 He has very little in the way of pain. He does not have an air leak. His lung is fully expanded on x-ray. He drained very little fluid. He has been ambulating in the hallway. He is on room air. He is tolerating a regular diet. 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 I am going to probably remove his chest tube and discharge him in the morning.
[2018-01-19] MEDS ORDERED: CLC100 PO (20:21)
[2018-01-19] MEDS ORDERED: ACET-1047 PO (20:21)
--- NOTE | 2018-01-19 20:24 | Discharge Instructions ---
Discharge Instructions Date of Service January 19, 2018. Admission Reason for Admission: Left Lung Mass, Diabetes Discharge Discharge Diagnosis / Problem: Left Lung Mass Discharge Goals Goal(s): Learn about illness Activity Recommendations Activity Limitations: as noted below Lifting Limitations: none 1. Do not drive or fly until cleared to do so by Dr. Liu. . Instructions / Follow-Up Instructions / Follow-Up 1. You may remove dressings in 3 days and shower thereafter. No tub baths. 2. Office appointment with Dr. Liu in 1 week. Office will call you with date and time of appointment. Go to hospital 1 hour before appointment to have a chest x-ray taken. Current Hospital Diet Patient's current hospital diet: Diabetes Type 2 Diet Discharge Diet Recommended Diet: Diabetes Type 2 Diet Procedures Procedures Performed: Left Video Assisted Thoracoscopy with Left Lower Lobectomy with Mediastinal Lymphadenectomy Robot Asisst Pending Studies Studies pending at discharge: no Medical Emergencies . Who to Call and When: Medical Emergencies: If at any time you feel your situation is an emergency, please call 911 immediately. . Non-Emergent Contact Non-Emergency issues call your: Surgeon Call Non-Emergent contact if: you have a fever, your pain is not controlled, wound has increased drainage . "Provider Documentation" section prepared by Sudarshan Varghese. .
[2018-01-19] MEDS: TAMSULOSIN HCL 0.4 MG CAP PO SCH (20:49)
[2018-01-19] MEDS: PRAVASTATIN SOD 20 MG TAB PO SCH (20:49)
[2018-01-19 23:20] VITALS: BP 156/82; PULSE 75; TEMP 37; O2SAT 95
[2018-01-20] MEDS: ACETAMINOPHEN 325 MG TAB PO SCH ×2 (02:01→09:27)
[2018-01-20] MEDS: KETOROLAC TROMETHAMINE 15 MG/ML VIAL IV. SCH ×2 (02:02→09:35)
[2018-01-20 03:40] VITALS: BP 136/78; PULSE 75; TEMP 37; O2SAT 93
--- NOTE | 2018-01-20 07:19 | DIAGNOSTIC IMAGING REPORT ---
CHEST ONE VIEW PORTABLE CLINICAL HISTORY: 72 years-old Male presenting with LLL. TECHNIQUE: Portable upright AP view of the chest was obtained. COMPARISON: 01/19/2018. FINDINGS: Large bore left pleural drain remains positioned at the paramediastinal left midlung. Left subclavian pacer with leads to the right atrium and right ventricular apex. Cardiomediastinal silhouette normal. Redemonstration of a radiolucent line along the left mediastinum consistent with persistent left pneumothorax. Redemonstration of slight volume loss of the left mid thorax relative to the right consistent with postsurgical changes of left lower lobectomy. No new focal opacity. Degenerative changes of the thoracic spine. Upper abdomen normal. Persistent soft tissue emphysema over the inferior left chest wall. IMPRESSION: 1. Large bore left pleural drain remains in place with persistent left paramediastinal pneumothorax. This is unchanged. Correlate clinically to exclude air leak. 2. Postsurgical changes of left lower lobectomy. Electronically signed by: Lui Parikh M.D. 01/20/2018 7:18 AM Dictated Date/Time: 01/20/2018 7:12 AM
--- NOTE | 2018-01-20 07:32 | DIAGNOSTIC IMAGING REPORT ---
CHEST ONE VIEW PORTABLE HISTORY: 72 years-old Male tube removal status post chest tube removal COMPARISON: Chest radiograph 01/20/2018 at 6:47 AM TECHNIQUE: Portable AP view of the chest FINDINGS: Cardiac silhouette is again enlarged. Status post removal of large bore left-sided pleural drainage catheter. Persistent small left and mediastinal pneumothorax. Subcutaneous emphysema about the lateral left chest wall. Stable positioning of left subclavian pacer. No pneumothorax, pleural effusion or overt pulmonary edema. Mild left hemidiaphragm elevation. Bones of the chest appear grossly intact. IMPRESSION: Status post removal of left-sided chest tube with persistent small left paramediastinal pneumothorax. The above report was generated using voice recognition software. It may contain grammatical, syntax or spelling errors. Electronically signed by: Jeff Mcfarlane M.D. 01/20/2018 7:31 AM Dictated Date/Time: 01/20/2018 7:26 AM
[2018-01-20] MEDS ORDERED: ULT/50 PO (07:38)
[2018-01-20] MEDS: INSULIN ASPART 100 UNITS/ML 3 ML PEN SC SCH (08:00)
[2018-01-20 08:13] VITALS: BP 147/81; PULSE 79; TEMP 36.7; O2SAT 96
--- NOTE | 2018-01-20 08:33 | DISCHARGE SUMMARY ---
DATE OF DISCHARGE: 01/20/18 DISCHARGE DIAGNOSIS: Neoplasm, left lower lobe (unknown cell type at this point). 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 He had a melanoma excised from his upper back a few weeks before and a CT scan showed this mass which was asymptomatic. He is not a cigarette smoker. Metastatic workup otherwise revealed no evidence of extrathoracic disease. It was in the middle of his lower lobe and I did not think a wedge resection was going to be technically achievable or possible. I also do not think he was a candidate for segmentectomy. At this point, we elected to proceed with a lobectomy and on 01/18/2018 the patient underwent an uncomplicated robot-assisted left lower lobectomy with mediastinal lymph node dissection. Frozen section showed this to be a neoplasm, although the cell type is still unknown. It did not appear to be melanoma, though we will not know until the immunohistochemical stains and other studies are back. Dr. Waters did well. I considered discharging him last night; however, he had no air leak and I have kept him until this morning. He was discharged home on postop day 2. His incisions were clean. His x-ray looked very good. He is ambulating in the hallway. Tolerating regular diet. He had very little pain. Chest tube was removed in the morning postop day 2. He was discharged home and I will see him back next week to go over final pathology. Discharge instructions were given.
[2018-01-20] MEDS: ENOXAPARIN 40 MG/0.4 ML SYR SQ SCH (09:00)
[2018-01-20 09:09] VITALS: BP 147/81; PULSE 79; TEMP 36.7; O2SAT 96
[2018-01-20] MEDS: ASPIRIN 81 MG ECTAB PO SCH (09:25)
[2018-01-20] MEDS: CHOLECALCIFEROL 1000 INTER.UNIT TAB PO SCH (09:25)
[2018-01-20] MEDS: MULTIVITAMIN TAB PO SCH (09:25)
[2018-01-20] MEDS: LOSARTAN POTASSIUM 50 MG TAB PO SCH (09:25)
[2018-01-20] MEDS: DOXAZosin MESYLATE TAB 4 MG TAB PO SCH (09:26)
[2018-01-20] MEDS: DOCUSATE SODIUM 100 MG CAP PO SCH (09:35)
--- NOTE | 2018-01-21 08:44 | EDITING REQUIRED CODING QUERY ---
PATHOLOGY To promote full compliance with coding requirements relating to patient care, physician participation is requested in all cases of wire welder uncertainty. Please assist us with the question(s) below: Please review the Pathology report and please document any relevant diagnosis(es) below. Thank you! PIERRE Funes [facility] Diagnosis(es): Typical Carcinoid - completely resected.
== END 2018-01-20 09:56 | disposition home or self-care (01) | DRG 165 ==
LOC: C.ACU 07:55 → ENRESERV 16:01 → EDBEDREQSVC 16:15 → EDBEDREQTM 16:15 → ENRESERV 16:16 → C.2E 16:18 → UNDOADMIN 16:18 → ENRESERV 01-19 08:07 → C.MSW 01-19 10:41
PROVIDERS: ADMIT Surgery; ATTEND Surgery
PROC: 0BTJ4ZZ Resection of Left Lower Lung Lobe, Percutaneous Endoscopic Approach (ICD-10-PCS; principal; 2018-01-18 10:00)
PROC: 07B74ZX Excision of Thorax Lymphatic, Percutaneous Endoscopic Approach, Diagnostic (ICD-10-PCS; principal; 2018-01-18 10:00)
PROC: 8E0W4CZ Robotic Assisted Procedure of Trunk Region, Percutaneous Endoscopic Approach (ICD-10-PCS; principal; 2018-01-18 10:00)
DX: C7A.090 Malignant carcinoid tumor of the bronchus and lung (principal); N40.1 Benign prostatic hyperplasia with lower urinary tract symptoms; E11.9 Type 2 diabetes mellitus without complications; K57.90 Diverticulosis of intestine, part unspecified, without perforation or abscess without bleeding; Z85.820 Personal history of malignant melanoma of skin; E78.5 Hyperlipidemia, unspecified; Z95.0 Presence of cardiac pacemaker

== ENCOUNTER → 2018-04-19 | Outpatient (CLI) | payer OTHER, MEDICARE ==
[~2018-04-19] MED LIST changes: +ACET-1047 PO; +CLC100 PO; -LACTATED RINGER'S 1000ML 1,000 ML IV SCH; +ULT/50 PO
[2018-04-19 12:44] LABS: BASO % 0.3 %; BASO ABS # 0.02 K/uL (0-0.2); EOS % 1.1 %; EOS ABS # 0.07 K/uL (0-0.5); HEMOGLOBIN 13.4 g/dL (14.0-18.0); IG# 0.01 K/uL (0.00-0.02); LYMPH % 32.8 %; MEAN CELL VOLUME 84.5 fL (80-100); MEAN CORPUSCULAR HEMOGLOBIN 27.6 pg (25-34); MEAN CORPUSCULAR HGB CONC 32.7 g/dl (32-36); MEAN PLATELET VOLUME 10.2 fL (7.4-10.4); MONO % 15.1 %; MONO ABS # 0.92 K/uL (0.11-0.59); NEUT % 50.5 %; NEUT ABS # 3.07 K/uL (1.4-6.5); PLATELET COUNT 186 K/uL (130-400); RED CELL DISTRIBUTION WIDTH CV 14.2 % (11.5-14.5); RED CELL DISTRIBUTION WIDTH SD 43.8 fL (36.4-46.3); WHITE BLOOD COUNT 6.09 K/uL (4.8-10.8)
[2018-04-19 13:37] LABS: HEMOGLOBIN A1C 6.4 % (4.5-5.6)
[2018-04-19 13:49] LABS: ALBUMIN 3.5 gm/dl (3.4-5.0); ALKALINE PHOSPHATASE 56 U/L (45-117); ALT/SGPT 48 U/L (12-78); AST/SGOT 36 U/L (15-37); BLOOD UREA NITROGEN 19 mg/dl (7-18); CALCIUM 8.9 mg/dl (8.5-10.1); CARBON DIOXIDE 25 mmol/L (21-32); CHOLESTEROL 166 mg/dl (0-200); CREATININE 1.06 mg/dl (0.60-1.40); GLUCOSE 125 mg/dl (70-99); LDL CHOLESTEROL CALCULATED 65 mg/dl; POTASSIUM 3.6 mmol/L (3.5-5.1); SODIUM 137 mmol/L (136-145); TOTAL PROTEIN 7.5 gm/dl (6.4-8.2)
== END | disposition home or self-care (01) ==
LOC: C.LABBFT 07:26
PROVIDERS: ATTEND Physician Assistant Medical
DX: E04.2 Nontoxic multinodular goiter (principal); E78.5 Hyperlipidemia, unspecified; I10 Essential (primary) hypertension; E11.9 Type 2 diabetes mellitus without complications